=== PATIENT | female | born 1975 | race Caucasian/White ===

== ENCOUNTER 2018-06-10 00:17 | Emergency (ER) | payer SELFPAY ==
[~2018-06-10] VITALS: Ht 149.9 cm; Wt 68.0 kg
[2018-06-10 00:24] VITALS: BP_SYST 147
[2018-06-10] MEDS ORDERED: LIDOCAINE 1%, 20 ML MDV 20 ML ONE (01:11)
[2018-06-10] MEDS ORDERED: BACITRACIN 1 GM OINT TP ONE (01:30)
[2018-06-10] MEDS ORDERED: IBUPROFEN 800 MG TABLET PO ONE (01:30)
[2018-06-10 01:38] VITALS: BP_SYST 141
== END 2018-06-10 01:38 | disposition home or self-care (01) ==
LOC: SED 00:17
DX: S61.102A Unspecified open wound of left thumb with damage to nail, initial encounter (principal); W22.8XXA Striking against or struck by other objects, initial encounter; Y93.89 Activity, other specified; Y92.89 Other specified places as the place of occurrence of the external cause; Y99.8 Other external cause status
CPT/HCPCS: 11730; 99283; J2001